=== PATIENT | male | born 1980 | race Asian ===

== ENCOUNTER 2017-06-30 13:03 | Inpatient (IN) | payer MEDICAID, OTHER ==
[~2017-06-30] VITALS: Ht 177.8 cm; Wt 62.3 kg
[~2017-06-30 13:03] MED LIST: DIVA500T35 PO; FLUO10TA3 PO; QUET50TA PO
[2017-06-30 13:49] LABS: BASOPHILS # (AUTO) 0.01 K/uL (0.00-0.20); BASOPHILS % (AUTO) 0.1 % (0.0-2.0); EOSINOPHILS # (AUTO) 0.11 K/uL (0.00-0.70); EOSINOPHILS % (AUTO) 1.48 % (1.0-6.0); HEMATOCRIT 39.4 % (41-53); HEMOGLOBIN 12.3 g/dL (13.5-17.5); LYMPHOCYTES # (AUTO) 1.5 K/uL (1.0-4.8); MEAN CORPUSCULAR HEMOGLOBIN 19.8 pg (26.0-34.0); MEAN CORPUSCULAR HGB CONC 31.2 G/dL (31.0-37.0); MEAN CORPUSCULAR VOLUME 64 fL (80-100); MONOCYTES # (AUTO) 0.5 K/uL (0.1-1.0); MONOCYTES % (AUTO) 6.2 % (2.0-9.0); NEUTROPHILS # (AUTO) 5.5 K/uL (1.8-7.7); NEUTROPHILS % (AUTO) 72.3 % (40.0-70.0); PLATELET COUNT (AUTO) 179 K/uL (150-450); RED BLOOD CELL COUNT(AUTO) 6.18 MIL/uL (4.50-5.90); RED CELL DISTRIBUTION WIDTH 16.1 % (11.5-14.5); WHITE BLOOD COUNT (AUTO) 7.6 K/uL (4.5-11.0)
[2017-06-30 13:57] LABS: ANION GAP 6 mmol/L (8-16); CALCIUM, TOTAL 8.9 mg/dL (8.8-10.5); CARBON DIOXIDE 31 mmol/L (22-29); CHLORIDE 102 mmol/L (98-107); CREATININE 0.95 mg/dL (0.60-1.30); GLOMERULAR FILTR. RATE CALC > 60 mL/min (>60); POTASSIUM 4.1 mmol/L (3.5-5.1); SODIUM SERUM 139 mmol/L (136-145); UREA NITROGEN, BLOOD 16 mg/dL (7-18)
[2017-06-30 14:10] LABS: ALANINE AMINOTRANSFERASE 28 U/L (12-78); ALBUMIN 3.6 g/dL (3.4-5.0); ASPARTATE AMINOTRANSFERASE 19 U/L (15-37); BILIRUBIN,TOTAL 0.4 mg/dL (0.1-1.0); TOTAL PROTEIN, SERUM 7.3 g/dL (6.4-8.2)
[2017-06-30 14:17] LABS: RBC MORPHOLOGY COMMENT ABNORMAL RBC MORPH
[2017-06-30 14:26] LABS: VALPROIC ACID < 3 mcg/mL (50-100)
[2017-06-30] MEDS ORDERED: ZOLPIDEM TARTRATE 10 MG TABLET PO PRN (15:15)
[2017-07-01 02:42] VITALS: BP 115/64
[2017-07-01] MEDS ORDERED: -PHARMACY VACCINE NOTE- MISC ONE ×2 (03:00)
[2017-07-01] MEDS ORDERED: INFLUENZA VIRUS VACCINE QVS 2017-18 (3YR+)/PF 60 MCG/0.5 ML SYRINGE IM ONE (03:00)
[2017-07-01 09:01] VITALS: BP 101/63
[2017-07-01] MEDS: QUEtiapine FUMARATE 100 MG TABLET PO SCH (20:31)
[2017-07-02 08:12] VITALS: BP 96/69
[2017-07-02] MEDS: QUEtiapine FUMARATE 100 MG TABLET PO SCH (20:55)
[2017-07-03 00:23] VITALS: BP 113/79
[2017-07-03 06:50] LABS: BASOPHILS % (AUTO) 0.4 % (0.0-2.0); EOSINOPHILS % (AUTO) 3.5 % (1.0-6.0); HEMATOCRIT 38.3 % (41-53); HEMOGLOBIN 12.3 g/dL (13.5-17.5); LYMPHOCYTES # (AUTO) 1.8 K/uL (1.0-4.8); LYMPHOCYTES % (AUTO) 33.8 % (22.0-44.0); MEAN CORPUSCULAR HEMOGLOBIN 20.4 pg (26.0-34.0); MEAN CORPUSCULAR VOLUME 64 fL (80-100); MONOCYTES # (AUTO) 0.5 K/uL (0.1-1.0); MONOCYTES % (AUTO) 8.4 % (2.0-9.0); NEUTROPHILS # (AUTO) 2.9 K/uL (1.8-7.7); NEUTROPHILS % (AUTO) 53.9 % (40.0-70.0); PLATELET COUNT (AUTO) 230 K/uL (150-450); RED BLOOD CELL COUNT(AUTO) 6.02 MIL/uL (4.50-5.90); RED CELL DISTRIBUTION WIDTH 15.5 % (11.5-14.5); WHITE BLOOD COUNT (AUTO) 5.4 K/uL (4.5-11.0)
[2017-07-03 07:15] LABS: ALANINE AMINOTRANSFERASE 27 U/L (12-78); ALBUMIN 3.2 g/dL (3.4-5.0); ANION GAP 3 mmol/L (8-16); ASPARTATE AMINOTRANSFERASE 16 U/L (15-37); BILIRUBIN,TOTAL 0.3 mg/dL (0.1-1.0); CALCIUM, TOTAL 8.4 mg/dL (8.8-10.5); CARBON DIOXIDE 30 mmol/L (22-29); CHLORIDE 104 mmol/L (98-107); CREATININE 0.81 mg/dL (0.60-1.30); GLOMERULAR FILTR. RATE CALC > 60 mL/min (>60); POTASSIUM 4.2 mmol/L (3.5-5.1); SODIUM SERUM 137 mmol/L (136-145); THYROID STIMULATING HORMONE 1.11 uIU/mL (0.36-3.74); TOTAL PROTEIN, SERUM 6.9 g/dL (6.4-8.2); UREA NITROGEN, BLOOD 17 mg/dL (7-18)
[2017-07-03 08:08] VITALS: BP 106/68
[2017-07-03 08:11] VITALS: BP 106/68
[2017-07-03] MEDS: LORazepam 2 MG TABLET PO PRN ×2 (08:38→17:57)
[2017-07-03] MEDS: HALOPERIDOL 5 MG TABLET PO PRN (17:57)
[2017-07-03 18:40] VITALS: BP 131/79
[2017-07-03] MEDS: QUEtiapine FUMARATE 100 MG TABLET PO SCH (20:11)
[2017-07-04 08:08] VITALS: BP 109/66
[2017-07-04 16:29] VITALS: BP 128/79
[2017-07-04] MEDS: HALOPERIDOL 5 MG TABLET PO PRN (17:48)
[2017-07-04] MEDS: LORazepam 2 MG TABLET PO PRN (17:49)
[2017-07-04] MEDS: QUEtiapine FUMARATE 100 MG TABLET PO SCH (21:48)
[2017-07-05 10:11] VITALS: BP 94/52
[2017-07-05] MEDS: CITALOPRAM HYDROBROMIDE 20 MG TABLET PO SCH (10:16)
[2017-07-05] MEDS: QUEtiapine FUMARATE 100 MG TABLET PO SCH (20:58)
[2017-07-06 08:32] VITALS: BP 93/57
[2017-07-06] MEDS: CITALOPRAM HYDROBROMIDE 20 MG TABLET PO SCH (09:35)
[2017-07-06] MEDS: QUEtiapine FUMARATE 100 MG TABLET PO SCH (20:29)
[2017-07-07 02:53] VITALS: BP 116/71
[2017-07-07] MEDS: LORazepam 2 MG TABLET PO PRN (05:40)
[2017-07-07 08:09] VITALS: BP 103/58
[2017-07-07] MEDS: CITALOPRAM HYDROBROMIDE 20 MG TABLET PO SCH (08:45)
[2017-07-07] MEDS ORDERED: CITA20TA9 PO (12:56)
[2017-07-07] MEDS ORDERED: QUET100T PO (12:57)
== END 2017-07-07 13:45 | disposition home or self-care (01) | DRG 753 ==
LOC: EMS 13:04 → 3EC 07-01 01:50
PROVIDERS: ADMIT Psychiatry & Neurology Child & Adolescent Psychiatry; ATTEND Psychiatry & Neurology Child & Adolescent Psychiatry
DX: F31.4 Bipolar disorder, current episode depressed, severe, without psychotic features (principal); R45.851 Suicidal ideations; D50.9 Iron deficiency anemia, unspecified; F17.210 Nicotine dependence, cigarettes, uncomplicated; F64.9 Gender identity disorder, unspecified; K59.00 Constipation, unspecified; Z59.0 Homelessness; Z79.899 Other long term (current) drug therapy; Z91.5 Personal history of self-harm
CPT/HCPCS: 84439; 84443; 99285; 99406; G0480

== ENCOUNTER 2017-08-02 05:43 | Inpatient (IN) | payer MEDICAID, OTHER ==
[~2017-08-02] VITALS: Ht 177.8 cm; Wt 61.2 kg
[~2017-08-02 05:43] MED LIST changes: +CITA20TA9 PO; -DIVA500T35 PO; -FLUO10TA3 PO; +QUET100T PO; -QUET50TA PO
[2017-08-02 07:00] LABS: BASOPHILS % (AUTO) 0.7 % (0.0-2.0); EOSINOPHILS % (AUTO) 2.4 % (1.0-6.0); HEMATOCRIT 37.9 % (41-53); LYMPHOCYTES % (AUTO) 36.8 % (22.0-44.0); MEAN CORPUSCULAR HEMOGLOBIN 20.1 pg (26.0-34.0); MEAN CORPUSCULAR HGB CONC 31.6 G/dL (31.0-37.0); MEAN CORPUSCULAR VOLUME 63 fL (80-100); MONOCYTES # (AUTO) 0.5 K/uL (0.1-1.0); MONOCYTES % (AUTO) 8.5 % (2.0-9.0); NEUTROPHILS # (AUTO) 2.8 K/uL (1.8-7.7); NEUTROPHILS % (AUTO) 51.6 % (40.0-70.0); PLATELET COUNT (AUTO) 181 K/uL (150-450); RED BLOOD CELL COUNT(AUTO) 5.98 MIL/uL (4.50-5.90); RED CELL DISTRIBUTION WIDTH 15.6 % (11.5-14.5)
[2017-08-02 07:23] LABS: ANION GAP 5 mmol/L (8-16); CALCIUM, TOTAL 8.5 mg/dL (8.8-10.5); CARBON DIOXIDE 33 mmol/L (22-29); CHLORIDE 102 mmol/L (98-107); CREATININE 0.86 mg/dL (0.60-1.30); GLOMERULAR FILTR. RATE CALC > 60 mL/min (>60); GLUCOSE,RANDOM 114 mg/dL (70-110); POTASSIUM 4.1 mmol/L (3.5-5.1); SODIUM SERUM 140 mmol/L (136-145); UREA NITROGEN, BLOOD 9 mg/dL (7-18)
[2017-08-02 07:28] LABS: ALANINE AMINOTRANSFERASE 23 U/L (12-78); ALBUMIN 3.5 g/dL (3.4-5.0); ALKALINE PHOSPHATASE 99 U/L (46-116); ASPARTATE AMINOTRANSFERASE 15 U/L (15-37); BILIRUBIN,TOTAL 0.3 mg/dL (0.1-1.0); TOTAL PROTEIN, SERUM 7.1 g/dL (6.4-8.2)
[2017-08-02] MEDS ORDERED: LORazepam 2 MG TABLET PO PRN (09:15)
[2017-08-02] MEDS ORDERED: ZOLPIDEM TARTRATE 10 MG TABLET PO PRN (09:15)
[2017-08-02] MEDS ORDERED: HALOPERIDOL 5 MG TABLET PO PRN (09:15)
[2017-08-02 11:22] VITALS: BP 108/65
[2017-08-02 20:35] VITALS: BP 105/66
[2017-08-02] MEDS ORDERED: QUEtiapine FUMARATE 100 MG TABLET PO SCH (21:00)
[2017-08-03 04:15] VITALS: BP 112/70
[2017-08-03 09:00] VITALS: BP 100/41
[2017-08-03] MEDS ORDERED: CITALOPRAM HYDROBROMIDE 20 MG TABLET PO SCH (09:00)
[2017-08-03 16:30] VITALS: BP 125/79
[2017-08-03] MEDS: MIRTAZAPINE 15 MG TABLET PO SCH (20:25)
[2017-08-04] MEDS: ARIPiprazole 10 MG TABLET PO SCH (08:38)
[2017-08-04 09:00] VITALS: BP 117/88
[2017-08-04] MEDS: MIRTAZAPINE 15 MG TABLET PO SCH (21:27)
[2017-08-04 22:39] VITALS: BP 105/70
[2017-08-05 08:00] VITALS: BP 109/70
[2017-08-05] MEDS: ARIPiprazole 10 MG TABLET PO SCH (11:00)
[2017-08-05] MEDS: MIRTAZAPINE 15 MG TABLET PO SCH (21:08)
[2017-08-05 21:55] VITALS: BP 114/74
[2017-08-06] MEDS: ARIPiprazole 10 MG TABLET PO SCH (09:41)
[2017-08-06 10:23] VITALS: BP 113/82
[2017-08-06 17:10] VITALS: BP 109/65
[2017-08-06] MEDS: MIRTAZAPINE 15 MG TABLET PO SCH (20:57)
[2017-08-07 08:57] VITALS: BP 102/65
[2017-08-07] MEDS: ARIPiprazole 10 MG TABLET PO SCH (09:44)
[2017-08-07 20:01] VITALS: BP 105/70
[2017-08-07] MEDS: MIRTAZAPINE 15 MG TABLET PO SCH (21:15)
[2017-08-08 08:00] VITALS: BP_SYST 96
[2017-08-08] MEDS: ARIPiprazole 10 MG TABLET PO SCH (10:11)
[2017-08-08 18:00] VITALS: BP 110/69
[2017-08-08] MEDS: MIRTAZAPINE 15 MG TABLET PO SCH (20:42)
[2017-08-09 08:00] VITALS: BP 111/74
[2017-08-09] MEDS ORDERED: ARIP10TA8 PO (09:22)
[2017-08-09] MEDS ORDERED: MIRT15 PO (09:22)
[2017-08-09] MEDS: ARIPiprazole 10 MG TABLET PO SCH (09:54)
== END 2017-08-09 14:06 | disposition home or self-care (01) | DRG 751 ==
LOC: EMS 05:44 → 3EI 10:14
PROVIDERS: ADMIT Psychiatry & Neurology Child & Adolescent Psychiatry; ATTEND Psychiatry & Neurology Child & Adolescent Psychiatry
DX: F33.2 Major depressive disorder, recurrent severe without psychotic features (principal); R45.851 Suicidal ideations; D64.9 Anemia, unspecified; F64.9 Gender identity disorder, unspecified; F15.90 Other stimulant use, unspecified, uncomplicated; Z87.891 Personal history of nicotine dependence; Z68.1 Body mass index [BMI] 19.9 or less, adult
CPT/HCPCS: 87081; 99285; G0480

== ENCOUNTER 2017-11-20 06:09 | Emergency (ER) | payer MEDICAID, OTHER ==
[~2017-11-20] VITALS: Ht 177.8 cm; Wt 61.8 kg
[~2017-11-20 06:09] MED LIST changes: +ARIP10TA8 PO; -CITA20TA9 PO; +MIRT15 PO; -QUET100T PO
[2017-11-20] MEDS ORDERED: SODIUM CHLORIDE 0.9% 1,000 ML IV ONE (06:31)
[2017-11-20] MEDS ORDERED: ONDANSETRON HCL 4 MG/2 ML VIAL IVP ONE (06:45)
[2017-11-20 06:58] LABS: BASOPHILS % (AUTO) 1.2 % (0.0-2.0); EOSINOPHILS % (AUTO) 2.5 % (1.0-6.0); HEMATOCRIT 38.8 % (41-53); HEMOGLOBIN 12.2 g/dL (13.5-17.5); LYMPHOCYTES % (AUTO) 40.8 % (22.0-44.0); MEAN CORPUSCULAR HEMOGLOBIN 19.3 pg (26.0-34.0); MEAN CORPUSCULAR HGB CONC 31.4 G/dL (31.0-37.0); MEAN CORPUSCULAR VOLUME 62 fL (80-100); MONOCYTES # (AUTO) 0.5 K/uL (0.1-1.0); MONOCYTES % (AUTO) 9.7 % (2.0-9.0); NEUTROPHILS # (AUTO) 2.3 K/uL (1.8-7.7); NEUTROPHILS % (AUTO) 45.8 % (40.0-70.0); PLATELET COUNT (AUTO) 175 K/uL (150-450); RED BLOOD CELL COUNT(AUTO) 6.31 MIL/uL (4.50-5.90); RED CELL DISTRIBUTION WIDTH 16.2 % (11.5-14.5)
[2017-11-20 07:06] LABS: ANION GAP 2 mmol/L (8-16); CALCIUM, TOTAL 8.6 mg/dL (8.8-10.5); CARBON DIOXIDE 32 mmol/L (22-29); CHLORIDE 106 mmol/L (98-107); CREATININE 0.96 mg/dL (0.60-1.30); GLOMERULAR FILTR. RATE CALC > 60 mL/min (>60); GLUCOSE,RANDOM 95 mg/dL (70-110); POTASSIUM 3.6 mmol/L (3.5-5.1); SODIUM SERUM 140 mmol/L (136-145); UREA NITROGEN, BLOOD 11 mg/dL (7-18)
[2017-11-20 07:12] LABS: ALANINE AMINOTRANSFERASE 26 U/L (12-78); ALBUMIN 3.7 g/dL (3.4-5.0); ALKALINE PHOSPHATASE 93 U/L (46-116); ASPARTATE AMINOTRANSFERASE 11 U/L (15-37); BILIRUBIN,TOTAL 0.3 mg/dL (0.1-1.0); LIPASE 246 U/L (73-393); TOTAL PROTEIN, SERUM 7.5 g/dL (6.4-8.2)
[2017-11-20 07:41] LABS: APPEARANCE,URINE CLEAR (CLEAR); BILIRUBIN,URINE NEGATIVE (NEGATIVE); GLUCOSE, URINE (UA) NEGATIVE (NEGATIVE); KETONES,URINE NEGATIVE (NEGATIVE); LEUKOCYTE ESTERASE ,URINE NEGATIVE (NEGATIVE); NITRATE,URINE NEGATIVE (NEGATIVE); OCCULT BLOOD,URINE NEGATIVE (NEGATIVE); PROTEIN,URINE NEGATIVE (NEGATIVE); UROBILINOGEN,URINE 0.2 mg/dL (<=1.0)
[2017-11-20 07:46] VITALS: BP 112/81
[2017-11-20 08:23] LABS: AMPHET/METH SCREEN,URINE NEGATIVE (NEGATIVE); BARBITURATE SCREEN, URINE NEGATIVE (NEGATIVE); BENZODIAZEPINES SCREEN,URINE NEGATIVE (NEGATIVE); CANNABINOID SCREEN,URINE NEGATIVE (NEGATIVE); COCAINE SCREEN,URINE NEGATIVE (NEGATIVE); METHADONE SCREEN, URINE NEGATIVE (NEGATIVE); OPIATE SCREEN,URINE NEGATIVE (NEGATIVE)
[2017-11-20 08:24] LABS: PHENCYCLIDINE SCREEN,URINE NEGATIVE (NEGATIVE)
== END 2017-11-20 09:01 | disposition home or self-care (01) ==
LOC: EMS 06:10
DX: R11.2 Nausea with vomiting, unspecified (principal); R10.9 Unspecified abdominal pain; F31.9 Bipolar disorder, unspecified; F17.210 Nicotine dependence, cigarettes, uncomplicated
CPT/HCPCS: 36415; 80053; 80307; 81003; 83690; 85025; 96361; 96374; 99284; 99406; J2405; J7030

== ENCOUNTER 2018-01-26 03:58 | Inpatient (IN) | payer MEDICAID, OTHER ==
[~2018-01-26] VITALS: Ht 177.8 cm; Wt 57.7 kg
[2018-01-26] MEDS ORDERED: PRED5 PO (04:13)
[2018-01-26 05:20] LABS: ANION GAP 2 mmol/L (8-16); CALCIUM, TOTAL 8.4 mg/dL (8.8-10.5); CARBON DIOXIDE 30 mmol/L (22-29); CHLORIDE 104 mmol/L (98-107); GLOMERULAR FILTR. RATE CALC > 60 mL/min (>60); GLUCOSE,RANDOM 166 mg/dL (70-110); POTASSIUM 4.4 mmol/L (3.5-5.1); SODIUM SERUM 136 mmol/L (136-145); UREA NITROGEN, BLOOD 8 mg/dL (7-18)
[2018-01-26 05:26] LABS: ALANINE AMINOTRANSFERASE 21 U/L (12-78); ALBUMIN 3.6 g/dL (3.4-5.0); ALKALINE PHOSPHATASE 66 U/L (46-116); ASPARTATE AMINOTRANSFERASE 14 U/L (15-37); BILIRUBIN,TOTAL 0.6 mg/dL (0.1-1.0); TOTAL PROTEIN, SERUM 6.7 g/dL (6.4-8.2)
[2018-01-26 05:28] LABS: BASOPHILS % (AUTO) 0.9 % (0.0-2.0); EOSINOPHILS % (AUTO) 2.6 % (1.0-6.0); HEMATOCRIT 35.3 % (41-53); HEMOGLOBIN 11.2 g/dL (13.5-17.5); LYMPHOCYTES # (AUTO) 1.7 K/uL (1.0-4.8); LYMPHOCYTES % (AUTO) 36.1 % (22.0-44.0); MEAN CORPUSCULAR HEMOGLOBIN 19.7 pg (26.0-34.0); MEAN CORPUSCULAR HGB CONC 31.8 G/dL (31.0-37.0); MEAN CORPUSCULAR VOLUME 62 fL (80-100); MONOCYTES # (AUTO) 0.4 K/uL (0.1-1.0); NEUTROPHILS # (AUTO) 2.4 K/uL (1.8-7.7); NEUTROPHILS % (AUTO) 52.4 % (40.0-70.0); PLATELET COUNT (AUTO) 188 K/uL (150-450); RED CELL DISTRIBUTION WIDTH 15.9 % (11.5-14.5)
[2018-01-26] MEDS ORDERED: LORazepam 2 MG TABLET PO PRN (06:15)
[2018-01-26] MEDS ORDERED: ZOLPIDEM TARTRATE 10 MG TABLET PO PRN (06:15)
[2018-01-26] MEDS ORDERED: HALOPERIDOL 5 MG TABLET PO PRN (06:15)
[2018-01-26 08:41] VITALS: BP 95/51
[2018-01-26 08:45] VITALS: BP 110/65
[2018-01-26] MEDS: ARIPiprazole 10 MG TABLET PO SCH (09:23)
[2018-01-26] MEDS: CITALOPRAM HYDROBROMIDE 20 MG TABLET PO SCH (09:23)
[2018-01-26] MEDS ORDERED: ACETAMINOPHEN 325 MG TABLET PO PRN (11:00)
[2018-01-26] MEDS ORDERED: PETROLATUM,WHITE 71 GM JELLY TP PRN (11:00)
[2018-01-26] MEDS ORDERED: DOCUSATE SODIUM 100 MG CAPSULE PO PRN (11:00)
[2018-01-26] MEDS ORDERED: ONDANSETRON HCL 4 MG TABLET PO PRN (11:00)
[2018-01-26] MEDS ORDERED: ALBUTEROL SULFATE HFA 90 MCG/PUFF 8 GM INHALER IH PRN (11:00)
[2018-01-26] MEDS ORDERED: MAG HYDROX/AL HYDROX/SIMETH ES 30 ML SUSPENSION UDCUP PO PRN (11:00)
[2018-01-26] MEDS ORDERED: IBUPROFEN 400 MG TABLET PO PRN (11:00)
[2018-01-26] MEDS ORDERED: MAGNESIUM HYDROXIDE SUSPENSION 30 ML UDCUP PO PRN (11:00)
[2018-01-26] MEDS: MIRTAZAPINE 15 MG TABLET PO SCH (21:16)
[2018-01-27] MEDS: NICOTINE 14 MG/24 HOUR PATCH TD SCH (09:00)
[2018-01-27 09:16] VITALS: BP 116/66
[2018-01-27] MEDS: PredniSONE 5 MG TABLET PO SCH (09:34)
[2018-01-27] MEDS: ARIPiprazole 10 MG TABLET PO SCH (09:34)
[2018-01-27] MEDS: CITALOPRAM HYDROBROMIDE 20 MG TABLET PO SCH (09:34)
[2018-01-27] MEDS: MIRTAZAPINE 15 MG TABLET PO SCH (20:21)
[2018-01-28] MEDS: NICOTINE 14 MG/24 HOUR PATCH TD SCH (09:00)
[2018-01-28] MEDS: CITALOPRAM HYDROBROMIDE 20 MG TABLET PO SCH (09:42)
[2018-01-28] MEDS: PredniSONE 5 MG TABLET PO SCH (09:42)
[2018-01-28] MEDS: ARIPiprazole 10 MG TABLET PO SCH (09:42)
[2018-01-28 12:56] VITALS: BP 105/62
[2018-01-28] MEDS ORDERED: NICOTINE 14 MG/24 HOUR PATCH TD PRN (14:45)
[2018-01-28 19:52] VITALS: BP 113/71
[2018-01-28] MEDS: MIRTAZAPINE 15 MG TABLET PO SCH (20:36)
[2018-01-29 10:24] VITALS: BP 102/67
[2018-01-29] MEDS: CITALOPRAM HYDROBROMIDE 20 MG TABLET PO SCH (10:40)
[2018-01-29] MEDS: PredniSONE 5 MG TABLET PO SCH (10:40)
[2018-01-29] MEDS: ARIPiprazole 10 MG TABLET PO SCH (10:40)
[2018-01-29] MEDS: MIRTAZAPINE 15 MG TABLET PO SCH (20:28)
[2018-01-30 03:16] VITALS: BP 110/77
[2018-01-30 09:52] VITALS: BP 112/72
[2018-01-30] MEDS: CITALOPRAM HYDROBROMIDE 20 MG TABLET PO SCH (12:58)
[2018-01-30] MEDS: ARIPiprazole 10 MG TABLET PO SCH (12:58)
[2018-01-30] MEDS: PredniSONE 5 MG TABLET PO SCH (12:58)
[2018-01-30] MEDS: MIRTAZAPINE 15 MG TABLET PO SCH (20:56)
[2018-01-30 21:03] VITALS: BP 98/63
[2018-01-31 08:05] VITALS: BP 110/66
[2018-01-31] MEDS: CITALOPRAM HYDROBROMIDE 20 MG TABLET PO SCH (11:15)
[2018-01-31] MEDS: ARIPiprazole 10 MG TABLET PO SCH (11:15)
[2018-01-31] MEDS: PredniSONE 5 MG TABLET PO SCH (11:16)
[2018-01-31 18:45] VITALS: BP 106/64
[2018-01-31] MEDS: MIRTAZAPINE 15 MG TABLET PO SCH (20:36)
[2018-02-01 04:03] VITALS: BP 100/62
[2018-02-01 08:05] VITALS: BP 119/79
[2018-02-01] MEDS: ARIPiprazole 10 MG TABLET PO SCH (08:50)
[2018-02-01] MEDS: CITALOPRAM HYDROBROMIDE 20 MG TABLET PO SCH (08:50)
[2018-02-01] MEDS: PredniSONE 5 MG TABLET PO SCH (08:50)
[2018-02-01 19:08] VITALS: BP 94/58
[2018-02-01] MEDS: MIRTAZAPINE 15 MG TABLET PO SCH (20:24)
[2018-02-02 04:17] VITALS: BP 103/61
[2018-02-02 07:08] LABS: % IRON SATURATION 37.6 % (30-44)
[2018-02-02 08:52] VITALS: BP 98/63
[2018-02-02] MEDS: ARIPiprazole 10 MG TABLET PO SCH (09:00)
[2018-02-02] MEDS: CITALOPRAM HYDROBROMIDE 20 MG TABLET PO SCH (09:00)
[2018-02-02] MEDS: PredniSONE 5 MG TABLET PO SCH (09:00)
[2018-02-02] MEDS ORDERED: ARIP10TA8 PO (09:04)
[2018-02-02] MEDS ORDERED: CITA-106 PO (09:04)
[2018-02-02] MEDS ORDERED: MIRT15 PO (09:05)
== END 2018-02-02 12:05 | disposition home or self-care (01) | DRG 753 ==
LOC: EMS 03:59 → AHU 06:19 → 3EI 20:03
PROVIDERS: ADMIT Psychiatry & Neurology Psychiatry; ATTEND Psychiatry & Neurology Psychiatry
DX: F31.2 Bipolar disorder, current episode manic severe with psychotic features (principal); R45.851 Suicidal ideations; D50.9 Iron deficiency anemia, unspecified; R63.0 Anorexia; F17.210 Nicotine dependence, cigarettes, uncomplicated; F41.9 Anxiety disorder, unspecified; R73.9 Hyperglycemia, unspecified; F64.9 Gender identity disorder, unspecified; K59.09 Other constipation; Z79.899 Other long term (current) drug therapy; Z68.1 Body mass index [BMI] 19.9 or less, adult; Z71.6 Tobacco abuse counseling
CPT/HCPCS: 82728; 83540; 83550; 99285; G0480

== ENCOUNTER 2018-05-15 05:50 | Inpatient (IN) | payer MEDICAID, OTHER ==
[~2018-05-15] VITALS: Ht 177.8 cm; Wt 60.6 kg
[~2018-05-15 05:50] MED LIST changes: +CITA-106 PO; +PRED5 PO
[2018-05-15 08:04] LABS: EOSINOPHILS % (AUTO) 1.6 % (1.0-6.0); HEMATOCRIT 35.1 % (41-53); HEMOGLOBIN 11.1 g/dL (13.5-17.5); LYMPHOCYTES # (AUTO) 1.4 K/uL (1.0-4.8); MEAN CORPUSCULAR HEMOGLOBIN 19.7 pg (26.0-34.0); MEAN CORPUSCULAR HGB CONC 31.8 G/dL (31.0-37.0); MEAN CORPUSCULAR VOLUME 62 fL (80-100); MONOCYTES # (AUTO) 0.5 K/uL (0.1-1.0); MONOCYTES % (AUTO) 9.6 % (2.0-9.0); NEUTROPHILS # (AUTO) 3.2 K/uL (1.8-7.7); NEUTROPHILS % (AUTO) 60.8 % (40.0-70.0); PLATELET COUNT (AUTO) 220 K/uL (150-450); RED BLOOD CELL COUNT(AUTO) 5.67 MIL/uL (4.50-5.90); RED CELL DISTRIBUTION WIDTH 15.9 % (11.5-14.5)
[2018-05-15 08:15] LABS: ANION GAP 3 mmol/L (8-16); CALCIUM, TOTAL 8.7 mg/dL (8.8-10.5); CARBON DIOXIDE 32 mmol/L (22-29); CHLORIDE 103 mmol/L (98-107); CREATININE 0.84 mg/dL (0.60-1.30); GLOMERULAR FILTR. RATE CALC > 60 mL/min (>60); GLUCOSE,RANDOM 88 mg/dL (70-110); POTASSIUM 3.8 mmol/L (3.5-5.1); SODIUM SERUM 138 mmol/L (136-145); UREA NITROGEN, BLOOD 14 mg/dL (7-18)
[2018-05-15 08:21] LABS: ALANINE AMINOTRANSFERASE 25 U/L (12-78); ALBUMIN 3.7 g/dL (3.4-5.0); ALKALINE PHOSPHATASE 70 U/L (46-116); ASPARTATE AMINOTRANSFERASE 18 U/L (15-37); BILIRUBIN,TOTAL 0.7 mg/dL (0.1-1.0); TOTAL PROTEIN, SERUM 7.4 g/dL (6.4-8.2)
[2018-05-15] MEDS ORDERED: QUEtiapine FUMARATE 100 MG TABLET PO PRN (08:30)
[2018-05-15] MEDS ORDERED: LORazepam 2 MG TABLET PO PRN (08:30)
[2018-05-15] MEDS ORDERED: ZOLPIDEM TARTRATE 10 MG TABLET PO PRN (08:30)
[2018-05-15 08:33] LABS: PLATELET MORPHOLOGY COMMENT GIANT PLTS PRESENT
[2018-05-15] MEDS ORDERED: MAG HYDROX/AL HYDROX/SIMETH ES 30 ML SUSPENSION UDCUP PO PRN (14:45)
[2018-05-15] MEDS ORDERED: HydrOXYzine PAMOATE 50 MG CAPSULE PO PRN (14:45)
[2018-05-15] MEDS ORDERED: MAGNESIUM HYDROXIDE SUSPENSION 30 ML UDCUP PO PRN (14:45)
[2018-05-15] MEDS ORDERED: LOPERAMIDE HCL 2 MG CAPSULE PO PRN (14:45)
[2018-05-15] MEDS ORDERED: PROMETHAZINE HCL 25 MG TABLET PO PRN (14:45)
[2018-05-15] MEDS ORDERED: TUBERCULIN, PURIFIED PROTEIN DERIVATIVE 5 TU/0.1 ML SYG ID ONE (14:45)
[2018-05-15] MEDS ORDERED: GuaiFENesin/D-METHORPHAN [SUGAR-FREE] 200-20MG/10 ML SYRUP UDCUP PO PRN (14:45)
[2018-05-15] MEDS ORDERED: ACETAMINOPHEN 325 MG TABLET PO PRN (14:45)
[2018-05-15] MEDS ORDERED: CYANOCOBALAMIN 1,000 MCG/ML VIAL IM ONE (14:45)
[2018-05-15] MEDS: QUEtiapine FUMARATE 25 MG TABLET PO SCH (17:00)
[2018-05-15 19:33] VITALS: BP 112/64
[2018-05-15 19:50] VITALS: BP 112/64
[2018-05-15 19:54] VITALS: BP 112/64
[2018-05-15] MEDS: THIAMINE HCL 100 MG TABLET PO SCH (20:30)
[2018-05-15] MEDS: DIVALPROEX SODIUM 500 MG ER TABLET PO SCH (20:33)
[2018-05-15] MEDS: QUEtiapine FUMARATE 200 MG TABLET PO SCH (20:33)
[2018-05-16] MEDS: THIAMINE HCL 100 MG TABLET PO SCH ×2 (09:00→18:04)
[2018-05-16] MEDS: FLUoxetine HCL 10 MG CAPSULE PO SCH (09:00)
[2018-05-16] MEDS: QUEtiapine FUMARATE 25 MG TABLET PO SCH ×4 (09:00→21:00)
[2018-05-16] MEDS: FOLIC ACID 1 MG TABLET PO SCH (09:50)
[2018-05-16] MEDS: MULTIVITAMINS WITH MINERALS, THERAPEUTIC TABLET PO SCH (09:52)
[2018-05-16] MEDS: NICOTINE 21 MG/24 HOUR PATCH TD SCH (09:55)
[2018-05-16 10:52] VITALS: BP 102/65
[2018-05-16] MEDS ORDERED: DiphenhydrAMINE HCL 50 MG/ML VIAL IM ONE (12:45)
[2018-05-16] MEDS ORDERED: HALOPERIDOL LACTATE 5 MG/ML VIAL IM ONE (12:45)
[2018-05-16] MEDS ORDERED: LORazepam 2 MG/ML VIAL IM ONE (12:45)
[2018-05-16 19:11] VITALS: BP 99/67
[2018-05-16] MEDS: DIVALPROEX SODIUM 500 MG ER TABLET PO SCH (21:00)
[2018-05-16] MEDS: QUEtiapine FUMARATE 200 MG TABLET PO SCH (21:00)
[2018-05-17] MEDS: QUEtiapine FUMARATE 25 MG TABLET PO SCH ×5 (09:00→21:00)
[2018-05-17] MEDS: FLUoxetine HCL 10 MG CAPSULE PO SCH (09:00)
[2018-05-17] MEDS: MULTIVITAMINS WITH MINERALS, THERAPEUTIC TABLET PO SCH (09:00)
[2018-05-17] MEDS: THIAMINE HCL 100 MG TABLET PO SCH ×2 (09:00→16:49)
[2018-05-17] MEDS: NICOTINE 21 MG/24 HOUR PATCH TD SCH (09:00)
[2018-05-17] MEDS: FOLIC ACID 1 MG TABLET PO SCH (09:00)
[2018-05-17] MEDS: DIVALPROEX SODIUM 500 MG ER TABLET PO SCH (21:00)
[2018-05-17] MEDS: QUEtiapine FUMARATE 200 MG TABLET PO SCH (21:00)
[2018-05-17 22:03] VITALS: BP 107/68
[2018-05-18] MEDS: MULTIVITAMINS WITH MINERALS, THERAPEUTIC TABLET PO SCH (09:00)
[2018-05-18] MEDS: FOLIC ACID 1 MG TABLET PO SCH (09:00)
[2018-05-18] MEDS: QUEtiapine FUMARATE 25 MG TABLET PO SCH ×2 (09:00→13:00)
[2018-05-18] MEDS: FLUoxetine HCL 10 MG CAPSULE PO SCH (09:00)
[2018-05-18] MEDS: NICOTINE 21 MG/24 HOUR PATCH TD SCH (09:00)
[2018-05-18] MEDS: THIAMINE HCL 100 MG TABLET PO SCH ×2 (09:00→17:00)
[2018-05-18 15:06] LABS: BASOPHILS % (AUTO) 0.1 % (0.0-2.0); EOSINOPHILS % (AUTO) 0 % (1.0-6.0); HEMATOCRIT 39.5 % (41-53); HEMOGLOBIN 12.4 g/dL (13.5-17.5); LYMPHOCYTES # (AUTO) 0.9 K/uL (1.0-4.8); LYMPHOCYTES % (AUTO) 7.4 % (22.0-44.0); MEAN CORPUSCULAR HEMOGLOBIN 19.6 pg (26.0-34.0); MEAN CORPUSCULAR HGB CONC 31.5 G/dL (31.0-37.0); MEAN CORPUSCULAR VOLUME 62 fL (80-100); MONOCYTES # (AUTO) 0.4 K/uL (0.1-1.0); MONOCYTES % (AUTO) 3.4 % (2.0-9.0); NEUTROPHILS # (AUTO) 10.8 K/uL (1.8-7.7); PLATELET COUNT (AUTO) 269 K/uL (150-450); RED BLOOD CELL COUNT(AUTO) 6.34 MIL/uL (4.50-5.90); RED CELL DISTRIBUTION WIDTH 15.7 % (11.5-14.5)
[2018-05-18 15:14] LABS: NEUTROPHILS % (AUTO) 89.1 % (40.0-70.0)
[2018-05-18 15:31] LABS: CALCIUM, TOTAL 9.7 mg/dL (8.8-10.5); CREATININE 1.43 mg/dL (0.60-1.30); POTASSIUM 4.7 mmol/L (3.5-5.1)
[2018-05-18 15:57] LABS: ALBUMIN 3.9 g/dL (3.4-5.0); BILIRUBIN,TOTAL 0.5 mg/dL (0.1-1.0); TOTAL PROTEIN, SERUM 7.9 g/dL (6.4-8.2)
== END 2018-05-18 20:30 | disposition short-term general hospital (02) | DRG 753 ==
LOC: EMS 05:50 → 3EI 15:41
PROVIDERS: ADMIT Psychiatry & Neurology Psychiatry; ATTEND Psychiatry & Neurology Psychiatry
DX: F31.9 Bipolar disorder, unspecified (principal); Z91.19 Patient's noncompliance with other medical treatment and regimen; D64.9 Anemia, unspecified; F17.210 Nicotine dependence, cigarettes, uncomplicated; K59.00 Constipation, unspecified; F15.10 Other stimulant abuse, uncomplicated; Z59.0 Homelessness
CPT/HCPCS: 99285; G0480; J1200; J1630; J2060

== ENCOUNTER 2018-05-18 20:10 | Inpatient (IN) | payer MEDICAID, OTHER ==
[~2018-05-18] VITALS: Ht 177.8 cm; Wt 60.9 kg
[2018-05-18 20:58] VITALS: BP 96/52
[2018-05-18] MEDS ORDERED: ONDANSETRON HCL 4 MG/2 ML VIAL IVP PRN (21:15)
[2018-05-18] MEDS ORDERED: BISACODYL 10 MG RECTAL RECTAL SUPPOSITORY PR PRN (21:15)
[2018-05-18] MEDS ORDERED: ACETAMINOPHEN 325 MG TABLET PO PRN (21:15)
[2018-05-18] MEDS ORDERED: MAGNESIUM HYDROXIDE SUSPENSION 30 ML UDCUP PO PRN (21:15)
[2018-05-18] MEDS ORDERED: ZOLPIDEM TARTRATE 5 MG TABLET PO PRN (21:15)
[2018-05-18] MEDS ORDERED: -PHARMACY VACCINE NOTE- MISC ONE (22:00)
[2018-05-18] MEDS: DEXTROSE 5%-0.45% SODIUM CHL 1,000 ML IV SCH (22:41)
[2018-05-19] VITALS (8 sets, daily range): BP systolic 97–159; BP diastolic 61–70
[2018-05-19] MEDS: DEXTROSE 5%-0.45% SODIUM CHL 1,000 ML IV SCH (08:16)
[2018-05-19] MEDS: PANTOPRAZOLE SODIUM 40 MG/VIAL IVP SCH (08:16)
[2018-05-19 08:33] LABS: BASOPHILS % (AUTO) 0.5 % (0.0-2.0); EOSINOPHILS % (AUTO) 0.7 % (1.0-6.0); HEMATOCRIT 33.9 % (41-53); LYMPHOCYTES # (AUTO) 1.9 K/uL (1.0-4.8); LYMPHOCYTES % (AUTO) 20.5 % (22.0-44.0); MEAN CORPUSCULAR HEMOGLOBIN 20.4 pg (26.0-34.0); MEAN CORPUSCULAR HGB CONC 32.5 G/dL (31.0-37.0); MEAN CORPUSCULAR VOLUME 63 fL (80-100); MONOCYTES # (AUTO) 0.9 K/uL (0.1-1.0); MONOCYTES % (AUTO) 9.5 % (2.0-9.0); NEUTROPHILS # (AUTO) 6.2 K/uL (1.8-7.7); NEUTROPHILS % (AUTO) 68.8 % (40.0-70.0); PLATELET COUNT (AUTO) 234 K/uL (150-450); RED BLOOD CELL COUNT(AUTO) 5.41 MIL/uL (4.50-5.90); RED CELL DISTRIBUTION WIDTH 15.9 % (11.5-14.5)
[2018-05-19 08:50] LABS: HEMOGLOBIN A1C 5.3 % (4.5-6.2)
[2018-05-19 09:01] LABS: ANION GAP 3 mmol/L (8-16); CALCIUM, TOTAL 8.1 mg/dL (8.8-10.5); CARBON DIOXIDE 31 mmol/L (22-29); CHLORIDE 101 mmol/L (98-107); CHOL/HDL RATIO 3.1 (4.2-7.3); CHOLESTEROL 122 mg/dL (131-200); CREATININE 1.02 mg/dL (0.60-1.30); GLOMERULAR FILTR. RATE CALC > 60 mL/min (>60); GLUCOSE,RANDOM 110 mg/dL (70-110); HDL CHOLESTEROL 39 mg/dL (40-60); LDL CHOL (CALC.) 70 mg/dL (0-130); POTASSIUM 3.6 mmol/L (3.5-5.1); SODIUM SERUM 135 mmol/L (136-145); THYROID STIMULATING HORMONE 0.51 uIU/mL (0.36-3.74); TRIGLYCERIDES 67 mg/dL (15-150); UREA NITROGEN, BLOOD 15 mg/dL (7-18)
[2018-05-19 09:07] LABS: CREATINE KINASE, TOTAL ONLY 1409 U/L (39-308)
[2018-05-19] MEDS: SODIUM CHLORIDE 0.9% 1,000 ML IV SCH (10:37)
[2018-05-19 14:15] LABS: AMPHET/METH SCREEN,URINE NEGATIVE (NEGATIVE); BARBITURATE SCREEN, URINE NEGATIVE (NEGATIVE); BENZODIAZEPINES SCREEN,URINE NEGATIVE (NEGATIVE); CANNABINOID SCREEN,URINE NEGATIVE (NEGATIVE); COCAINE SCREEN,URINE NEGATIVE (NEGATIVE); METHADONE SCREEN, URINE NEGATIVE (NEGATIVE); OPIATE SCREEN,URINE NEGATIVE (NEGATIVE)
[2018-05-19 14:16] LABS: PHENCYCLIDINE SCREEN,URINE NEGATIVE (NEGATIVE)
[2018-05-19 14:19] LABS: APPEARANCE,URINE CLEAR (CLEAR); BILIRUBIN,URINE NEGATIVE (NEGATIVE); GLUCOSE, URINE (UA) NEGATIVE (NEGATIVE); KETONES,URINE NEGATIVE (NEGATIVE); LEUKOCYTE ESTERASE ,URINE NEGATIVE (NEGATIVE); NITRATE,URINE NEGATIVE (NEGATIVE); OCCULT BLOOD,URINE NEGATIVE (NEGATIVE); PH,URINE 6.5 (5.0-8.0); PROTEIN,URINE NEGATIVE (NEGATIVE); UROBILINOGEN,URINE 0.2 mg/dL (<=1.0)
[2018-05-19] MEDS ORDERED: LORazepam 2 MG TABLET PO PRN (17:30)
[2018-05-19] MEDS ORDERED: QUEtiapine FUMARATE 100 MG TABLET PO PRN (17:30)
[2018-05-19] MEDS: QUEtiapine FUMARATE 200 MG TABLET PO SCH (20:42)
[2018-05-19] MEDS: DIVALPROEX SODIUM 500 MG ER TABLET PO SCH (20:42)
[2018-05-20] MEDS: SODIUM CHLORIDE 0.9% 1,000 ML IV SCH ×2 (02:39→20:34)
[2018-05-20 03:22] VITALS: BP 100/72
[2018-05-20 06:12] LABS: BASOPHILS % (AUTO) 1.1 % (0.0-2.0); EOSINOPHILS % (AUTO) 1.2 % (1.0-6.0); HEMATOCRIT 33.4 % (41-53); HEMOGLOBIN 10.8 g/dL (13.5-17.5); LYMPHOCYTES # (AUTO) 2.1 K/uL (1.0-4.8); LYMPHOCYTES % (AUTO) 38.5 % (22.0-44.0); MEAN CORPUSCULAR HEMOGLOBIN 20.3 pg (26.0-34.0); MEAN CORPUSCULAR HGB CONC 32.3 G/dL (31.0-37.0); MEAN CORPUSCULAR VOLUME 63 fL (80-100); MONOCYTES # (AUTO) 0.5 K/uL (0.1-1.0); MONOCYTES % (AUTO) 10.2 % (2.0-9.0); NEUTROPHILS # (AUTO) 2.6 K/uL (1.8-7.7); PLATELET COUNT (AUTO) 206 K/uL (150-450); RED BLOOD CELL COUNT(AUTO) 5.31 MIL/uL (4.50-5.90); RED CELL DISTRIBUTION WIDTH 16.1 % (11.5-14.5)
[2018-05-20 06:22] LABS: % IRON SATURATION 50.2 % (30-44)
[2018-05-20 06:59] LABS: ANION GAP 2 mmol/L (8-16); CARBON DIOXIDE 32 mmol/L (22-29); CHLORIDE 105 mmol/L (98-107); CREATINE KINASE, TOTAL ONLY 715 U/L (39-308); CREATININE 0.92 mg/dL (0.60-1.30); GLOMERULAR FILTR. RATE CALC > 60 mL/min (>60); GLUCOSE,RANDOM 94 mg/dL (70-110); PHOSPHORUS 2.6 mg/dL (2.5-4.9); POTASSIUM 4.5 mmol/L (3.5-5.1); SODIUM SERUM 139 mmol/L (136-145); UREA NITROGEN, BLOOD 12 mg/dL (7-18)
[2018-05-20 07:40] VITALS: BP 105/65
[2018-05-20] MEDS: PANTOPRAZOLE SODIUM 40 MG/VIAL IVP SCH (08:11)
[2018-05-20 11:17] VITALS: BP 115/67
[2018-05-20 11:19] LABS: AMPHET/METH SCREEN,URINE NEGATIVE (NEGATIVE); BARBITURATE SCREEN, URINE NEGATIVE (NEGATIVE); BENZODIAZEPINES SCREEN,URINE NEGATIVE (NEGATIVE); CANNABINOID SCREEN,URINE NEGATIVE (NEGATIVE); COCAINE SCREEN,URINE NEGATIVE (NEGATIVE); METHADONE SCREEN, URINE NEGATIVE (NEGATIVE); OPIATE SCREEN,URINE NEGATIVE (NEGATIVE)
[2018-05-20 11:20] LABS: PHENCYCLIDINE SCREEN,URINE NEGATIVE (NEGATIVE)
[2018-05-20] MEDS ORDERED: LORazepam 2 MG/ML VIAL IM ONE (13:15)
[2018-05-20] MEDS ORDERED: DiphenhydrAMINE HCL 50 MG/ML VIAL IM ONE (13:15)
[2018-05-20] MEDS ORDERED: HALOPERIDOL LACTATE 5 MG/ML VIAL IM ONE (13:15)
[2018-05-20 15:30] VITALS: BP 118/71
[2018-05-20 20:30] VITALS: BP 115/73
[2018-05-20] MEDS: QUEtiapine FUMARATE 200 MG TABLET PO SCH (20:34)
[2018-05-20] MEDS: DIVALPROEX SODIUM 500 MG ER TABLET PO SCH (20:34)
[2018-05-21] VITALS (7 sets, daily range): BP systolic 109–144; BP diastolic 65–79
[2018-05-21] MEDS: SODIUM CHLORIDE 0.9% 1,000 ML IV SCH ×2 (06:02→23:27)
[2018-05-21] MEDS: PANTOPRAZOLE SODIUM 40 MG/VIAL IVP SCH (09:00)
[2018-05-21] MEDS ORDERED: LORazepam 2 MG/ML VIAL IM PRN (18:30)
[2018-05-21] MEDS: NICOTINE 21 MG/24 HOUR PATCH TD SCH (20:02)
[2018-05-21] MEDS: DIVALPROEX SODIUM 500 MG ER TABLET PO SCH (21:00)
[2018-05-21] MEDS: QUEtiapine FUMARATE 200 MG TABLET PO SCH (22:49)
[2018-05-22 04:15] VITALS: BP 107/65
[2018-05-22] MEDS ORDERED: -PHARMACY VACCINE NOTE- MISC ONE (05:45)
[2018-05-22 07:40] VITALS: BP 105/71
[2018-05-22 08:10] LABS: BASOPHILS % (AUTO) 0.5 % (0.0-2.0); EOSINOPHILS % (AUTO) 1.4 % (1.0-6.0); HEMATOCRIT 36.6 % (41-53); HEMOGLOBIN 11.6 g/dL (13.5-17.5); LYMPHOCYTES % (AUTO) 26.2 % (22.0-44.0); MEAN CORPUSCULAR HEMOGLOBIN 19.9 pg (26.0-34.0); MEAN CORPUSCULAR HGB CONC 31.8 G/dL (31.0-37.0); MEAN CORPUSCULAR VOLUME 63 fL (80-100); MONOCYTES # (AUTO) 0.5 K/uL (0.1-1.0); MONOCYTES % (AUTO) 6.8 % (2.0-9.0); NEUTROPHILS # (AUTO) 4.9 K/uL (1.8-7.7); NEUTROPHILS % (AUTO) 65.1 % (40.0-70.0); PLATELET COUNT (AUTO) 218 K/uL (150-450); RED BLOOD CELL COUNT(AUTO) 5.85 MIL/uL (4.50-5.90)
[2018-05-22] MEDS ORDERED: HEPATITIS A VACCINE, INACTI [ADULT] 1,440 UNITS/ML VIAL IM ONE (08:45)
[2018-05-22 09:15] LABS: ANION GAP 4 mmol/L (8-16); CALCIUM, TOTAL 8.6 mg/dL (8.8-10.5); CARBON DIOXIDE 33 mmol/L (22-29); CHLORIDE 103 mmol/L (98-107); CREATINE KINASE, TOTAL ONLY 818 U/L (39-308); CREATININE 0.68 mg/dL (0.60-1.30); GLOMERULAR FILTR. RATE CALC > 60 mL/min (>60); GLUCOSE,RANDOM 84 mg/dL (70-110); PHOSPHORUS 3.7 mg/dL (2.5-4.9); POTASSIUM 3.4 mmol/L (3.5-5.1); SODIUM SERUM 140 mmol/L (136-145); UREA NITROGEN, BLOOD 10 mg/dL (7-18)
[2018-05-22] MEDS: NICOTINE 21 MG/24 HOUR PATCH TD SCH (10:56)
[2018-05-22] MEDS ORDERED: PNEUMOCOCCAL VACCINE POLYVALENT 0.5 ML VIAL [PPSV23] IM ONE (11:00)
[2018-05-22] MEDS: PANTOPRAZOLE SODIUM 40 MG/VIAL IVP SCH (11:04)
[2018-05-22] MEDS ORDERED: DIVA500T52 PO (11:11)
[2018-05-22] MEDS ORDERED: QUET200T PO (11:11)
== END 2018-05-22 11:17 | disposition home or self-care (01) | DRG 469 ==
LOC: 6N 20:10
PROVIDERS: ADMIT Internal Medicine Geriatric Medicine; ATTEND Internal Medicine Geriatric Medicine
DX: N17.9 Acute kidney failure, unspecified (principal); G21.0 Malignant neuroleptic syndrome; M62.82 Rhabdomyolysis; R45.851 Suicidal ideations; E87.1 Hypo-osmolality and hyponatremia; F25.9 Schizoaffective disorder, unspecified; D64.9 Anemia, unspecified; F31.9 Bipolar disorder, unspecified; D72.829 Elevated white blood cell count, unspecified; F15.10 Other stimulant abuse, uncomplicated; F64.9 Gender identity disorder, unspecified; Z23 Encounter for immunization; Z59.0 Homelessness; Z91.19 Patient's noncompliance with other medical treatment and regimen
CPT/HCPCS: 76770; 80307; 82728; 83036; 83540; 83550; 83735; 84100; 84439; 84443; 86592; 90632; 90686; C9113; G0378; J1200; J1630; J2060; J7030

== ENCOUNTER 2018-05-24 19:59 | Emergency (ER) | payer OTHER ==
[~2018-05-24] VITALS: Ht 177.8 cm; Wt 61.4 kg
[~2018-05-24 19:59] MED LIST changes: -ARIP10TA8 PO; -CITA-106 PO; +DIVA500T52 PO; -MIRT15 PO; -PRED5 PO; +QUET200T PO
[2018-05-24 20:40] LABS: ANION GAP 6 mmol/L (8-16); CALCIUM, TOTAL 8.9 mg/dL (8.8-10.5); CARBON DIOXIDE 31 mmol/L (22-29); CHLORIDE 100 mmol/L (98-107); CREATININE 1.09 mg/dL (0.60-1.30); GLOMERULAR FILTR. RATE CALC > 60 mL/min (>60); GLUCOSE,RANDOM 101 mg/dL (70-110); POTASSIUM 4.3 mmol/L (3.5-5.1); SODIUM SERUM 137 mmol/L (136-145); UREA NITROGEN, BLOOD 22 mg/dL (7-18)
[2018-05-24 20:46] LABS: ALANINE AMINOTRANSFERASE 45 U/L (12-78); ALKALINE PHOSPHATASE 72 U/L (46-116); ASPARTATE AMINOTRANSFERASE 34 U/L (15-37); BILIRUBIN,TOTAL 0.7 mg/dL (0.1-1.0); TOTAL PROTEIN, SERUM 7.7 g/dL (6.4-8.2)
[2018-05-24 20:47] LABS: BASOPHILS % (AUTO) 0.4 % (0.0-2.0); EOSINOPHILS % (AUTO) 0.3 % (1.0-6.0); HEMOGLOBIN 11.5 g/dL (13.5-17.5); LYMPHOCYTES # (AUTO) 0.9 K/uL (1.0-4.8); LYMPHOCYTES % (AUTO) 8.7 % (22.0-44.0); MEAN CORPUSCULAR HEMOGLOBIN 19.9 pg (26.0-34.0); MEAN CORPUSCULAR HGB CONC 31.9 G/dL (31.0-37.0); MEAN CORPUSCULAR VOLUME 63 fL (80-100); MONOCYTES # (AUTO) 1.3 K/uL (0.1-1.0); NEUTROPHILS # (AUTO) 8.2 K/uL (1.8-7.7); NEUTROPHILS % (AUTO) 78.6 % (40.0-70.0); PLATELET COUNT (AUTO) 204 K/uL (150-450); RED BLOOD CELL COUNT(AUTO) 5.75 MIL/uL (4.50-5.90); RED CELL DISTRIBUTION WIDTH 15.6 % (11.5-14.5)
[2018-05-24 22:26] VITALS: BP 115/69
== END 2018-05-24 22:31 | disposition home or self-care (01) ==
LOC: EMS 20:00
DX: S30.860A Insect bite (nonvenomous) of lower back and pelvis, initial encounter (principal); F31.9 Bipolar disorder, unspecified; G47.00 Insomnia, unspecified; F17.210 Nicotine dependence, cigarettes, uncomplicated; W57.XXXA Bitten or stung by nonvenomous insect and other nonvenomous arthropods, initial encounter; Y93.89 Activity, other specified; Y92.89 Other specified places as the place of occurrence of the external cause; Y99.8 Other external cause status
CPT/HCPCS: 36415; 80053; 85025; 99284; G0480

== ENCOUNTER 2018-08-17 19:08 | Inpatient (IN) | payer MEDICAID ==
[~2018-08-17] VITALS: Ht 177.8 cm; Wt 63.0 kg
[2018-08-17] MEDS ORDERED: LORazepam 2 MG TABLET PO PRN (22:30)
[2018-08-17] MEDS ORDERED: HALOPERIDOL 5 MG TABLET PO PRN (22:30)
[2018-08-17] MEDS ORDERED: ZOLPIDEM TARTRATE 10 MG TABLET PO PRN (22:30)
[2018-08-17 22:39] VITALS: BP 111/73
[2018-08-17] MEDS ORDERED: IBUPROFEN 400 MG TABLET PO PRN (23:00)
[2018-08-17] MEDS ORDERED: PETROLATUM,WHITE 71 GM JELLY TP PRN (23:00)
[2018-08-17] MEDS ORDERED: CloNIDine HCL 0.1 MG TABLET PO PRN (23:00)
[2018-08-17] MEDS ORDERED: LOPERAMIDE HCL 2 MG CAPSULE PO PRN (23:00)
[2018-08-17] MEDS ORDERED: NICOTINE 14 MG/24 HOUR PATCH TD PRN (23:00)
[2018-08-17] MEDS ORDERED: ACETAMINOPHEN 325 MG TABLET PO PRN (23:00)
[2018-08-17] MEDS ORDERED: GuaiFENesin/D-METHORPHAN [SUGAR-FREE] 200-20MG/10 ML SYRUP UDCUP PO PRN (23:00)
[2018-08-17] MEDS ORDERED: MAGNESIUM HYDROXIDE SUSPENSION 30 ML UDCUP PO PRN (23:00)
[2018-08-17] MEDS ORDERED: ALBUTEROL SULFATE HFA 90 MCG/PUFF 8 GM INHALER IH PRN (23:00)
[2018-08-17] MEDS ORDERED: MAG HYDROX/AL HYDROX/SIMETH ES 30 ML SUSPENSION UDCUP PO PRN (23:00)
[2018-08-17] MEDS ORDERED: ONDANSETRON HCL 4 MG TABLET PO PRN (23:00)
[2018-08-17] MEDS ORDERED: DOCUSATE SODIUM 100 MG CAPSULE PO PRN (23:00)
[2018-08-18 08:22] VITALS: BP 118/70
[2018-08-18] MEDS: CEPHALEXIN MONOHYDRATE 500 MG CAPSULE PO SCH ×2 (14:47→17:58)
[2018-08-18 16:47] VITALS: BP 119/85
[2018-08-18] MEDS: QUEtiapine FUMARATE 200 MG TABLET PO SCH (20:36)
[2018-08-19 07:15] LABS: BASOPHILS % (AUTO) 0.4 % (0.0-2.0); EOSINOPHILS % (AUTO) 4.3 % (1.0-6.0); HEMATOCRIT 36.7 % (41-53); HEMOGLOBIN 11.6 g/dL (13.5-17.5); LYMPHOCYTES # (AUTO) 1.7 K/uL (1.0-4.8); MEAN CORPUSCULAR HEMOGLOBIN 19.3 pg (26.0-34.0); MEAN CORPUSCULAR HGB CONC 31.5 G/dL (31.0-37.0); MEAN CORPUSCULAR VOLUME 61 fL (80-100); MONOCYTES # (AUTO) 0.5 K/uL (0.1-1.0); MONOCYTES % (AUTO) 12.1 % (2.0-9.0); NEUTROPHILS % (AUTO) 45.2 % (40.0-70.0); PLATELET COUNT (AUTO) 160 K/uL (150-450); RED BLOOD CELL COUNT(AUTO) 5.97 MIL/uL (4.50-5.90); RED CELL DISTRIBUTION WIDTH 15.8 % (11.5-14.5)
[2018-08-19 07:32] LABS: ALANINE AMINOTRANSFERASE 30 U/L (12-78); ALBUMIN 3.2 g/dL (3.4-5.0); ALKALINE PHOSPHATASE 74 U/L (46-116); ANION GAP 2 mmol/L (8-16); ASPARTATE AMINOTRANSFERASE 17 U/L (15-37); BILIRUBIN,TOTAL 0.4 mg/dL (0.1-1.0); CALCIUM, TOTAL 8.4 mg/dL (8.8-10.5); CARBON DIOXIDE 33 mmol/L (22-29); CHLORIDE 105 mmol/L (98-107); CHOL/HDL RATIO 3.2 (4.2-7.3); CHOLESTEROL 142 mg/dL (131-200); CREATININE 0.81 mg/dL (0.60-1.30); GLOMERULAR FILTR. RATE CALC > 60 mL/min (>60); GLUCOSE,RANDOM 89 mg/dL (70-110); HDL CHOLESTEROL 45 mg/dL (40-60); LDL CHOL (CALC.) 86 mg/dL (0-130); POTASSIUM 4.2 mmol/L (3.5-5.1); SODIUM SERUM 140 mmol/L (136-145); THYROID STIMULATING HORMONE 0.39 uIU/mL (0.36-3.74); TOTAL PROTEIN, SERUM 6.5 g/dL (6.4-8.2); TRIGLYCERIDES 54 mg/dL (15-150); UREA NITROGEN, BLOOD 13 mg/dL (7-18)
[2018-08-19 07:33] LABS: HEMOGLOBIN A1C 5.6 % (4.5-6.2)
[2018-08-19] MEDS: FLUoxetine HCL 20 MG CAPSULE PO SCH (09:00)
[2018-08-19] MEDS: CEPHALEXIN MONOHYDRATE 500 MG CAPSULE PO SCH ×3 (11:42→16:46)
[2018-08-19 16:00] VITALS: BP 97/49
[2018-08-19] MEDS: QUEtiapine FUMARATE 200 MG TABLET PO SCH (21:00)
[2018-08-20] MEDS: MULTIVITAMINS WITH MINERALS, THERAPEUTIC TABLET PO SCH (09:00)
[2018-08-20] MEDS: CEPHALEXIN MONOHYDRATE 500 MG CAPSULE PO SCH ×3 (09:00→16:30)
[2018-08-20] MEDS: FLUoxetine HCL 20 MG CAPSULE PO SCH (09:00)
[2018-08-20 09:37] VITALS: BP 119/60
[2018-08-20 16:30] VITALS: BP 102/63
[2018-08-20] MEDS: QUEtiapine FUMARATE 200 MG TABLET PO SCH (20:47)
[2018-08-21 01:29] VITALS: BP 104/67
[2018-08-21] MEDS: FLUoxetine HCL 20 MG CAPSULE PO SCH (09:00)
[2018-08-21] MEDS: MULTIVITAMINS WITH MINERALS, THERAPEUTIC TABLET PO SCH (09:04)
[2018-08-21] MEDS: CEPHALEXIN MONOHYDRATE 500 MG CAPSULE PO SCH ×3 (09:04→16:15)
[2018-08-21 19:05] VITALS: BP 111/56
[2018-08-21] MEDS: QUEtiapine FUMARATE 200 MG TABLET PO SCH (20:31)
[2018-08-22 03:17] VITALS: BP 91/66
[2018-08-22] MEDS: MULTIVITAMINS WITH MINERALS, THERAPEUTIC TABLET PO SCH (09:00)
[2018-08-22] MEDS: FLUoxetine HCL 20 MG CAPSULE PO SCH (09:00)
[2018-08-22 09:51] VITALS: BP 101/56
[2018-08-22] MEDS: CEPHALEXIN MONOHYDRATE 500 MG CAPSULE PO SCH ×3 (09:58→16:26)
[2018-08-22 17:01] VITALS: BP 90/51
[2018-08-22] MEDS: QUEtiapine FUMARATE 200 MG TABLET PO SCH (21:13)
[2018-08-23 03:24] VITALS: BP 112/75
[2018-08-23 08:05] VITALS: BP 114/74
[2018-08-23] MEDS: CEPHALEXIN MONOHYDRATE 500 MG CAPSULE PO SCH ×3 (10:36→16:27)
[2018-08-23] MEDS: MULTIVITAMINS WITH MINERALS, THERAPEUTIC TABLET PO SCH (10:36)
[2018-08-23] MEDS: FLUoxetine HCL 20 MG CAPSULE PO SCH (10:36)
[2018-08-23 16:36] VITALS: BP 120/72
[2018-08-23] MEDS: FERROUS SULFATE 325 MG EC TABLET PO SCH (17:07)
[2018-08-23] MEDS: QUEtiapine FUMARATE 200 MG TABLET PO SCH (20:24)
[2018-08-24 02:20] VITALS: BP 130/71
[2018-08-24] MEDS: FERROUS SULFATE 325 MG EC TABLET PO SCH (06:55)
[2018-08-24] MEDS ORDERED: FLUO-191 PO (08:25)
[2018-08-24] MEDS ORDERED: QUET200T PO (08:25)
[2018-08-24] MEDS ORDERED: MULT-1239 PO (08:27)
[2018-08-24] MEDS ORDERED: FOLI1 PO (08:27)
[2018-08-24] MEDS ORDERED: FERR-89 PO (08:27)
[2018-08-24] MEDS ORDERED: CEPH500 PO (08:27)
[2018-08-24] MEDS ORDERED: FOLIC ACID 1 MG TABLET PO SCH (09:00)
[2018-08-24] MEDS: CEPHALEXIN MONOHYDRATE 500 MG CAPSULE PO SCH (09:09)
[2018-08-24] MEDS: MULTIVITAMINS WITH MINERALS, THERAPEUTIC TABLET PO SCH (09:10)
[2018-08-24] MEDS: FLUoxetine HCL 20 MG CAPSULE PO SCH (09:10)
[2018-08-24 09:11] VITALS: BP 114/67
== END 2018-08-24 09:50 | disposition home or self-care (01) | DRG 750 ==
LOC: 3EI 22:27
PROVIDERS: ADMIT Psychiatry & Neurology Psychiatry; ATTEND Psychiatry & Neurology Psychiatry
DX: F25.1 Schizoaffective disorder, depressive type (principal); R45.851 Suicidal ideations; F15.20 Other stimulant dependence, uncomplicated; D64.9 Anemia, unspecified; D72.819 Decreased white blood cell count, unspecified; F41.9 Anxiety disorder, unspecified; L03.115 Cellulitis of right lower limb; Z91.5 Personal history of self-harm
CPT/HCPCS: 83036; 84443

== ENCOUNTER 2018-09-26 06:41 | Inpatient (IN) | payer MEDICAID, OTHER ==
[~2018-09-26] VITALS: Ht 177.8 cm; Wt 64.4 kg
[~2018-09-26 06:41] MED LIST changes: +CEPH500 PO; -DIVA500T52 PO; +FERR-89 PO; +FLUO-191 PO; +FOLI1 PO; +MULT-1239 PO
[2018-09-26] MEDS ORDERED: QUET100T PO (07:13)
[2018-09-26] MEDS ORDERED: BUPR100 PO (07:13)
[2018-09-26] MEDS ORDERED: LORazepam 2 MG TABLET PO PRN (09:15)
[2018-09-26] MEDS ORDERED: HALOPERIDOL 5 MG TABLET PO PRN (09:15)
[2018-09-26] MEDS ORDERED: ZOLPIDEM TARTRATE 10 MG TABLET PO PRN (09:15)
[2018-09-26 09:56] LABS: BASOPHILS % (AUTO) 0.9 % (0.0-2.0); HEMATOCRIT 37.9 % (41-53); HEMOGLOBIN 11.8 g/dL (13.5-17.5); LYMPHOCYTES # (AUTO) 1.8 K/uL (1.0-4.8); LYMPHOCYTES % (AUTO) 31.7 % (22.0-44.0); MEAN CORPUSCULAR HEMOGLOBIN 19.5 pg (26.0-34.0); MEAN CORPUSCULAR HGB CONC 31.1 G/dL (31.0-37.0); MEAN CORPUSCULAR VOLUME 63 fL (80-100); MONOCYTES # (AUTO) 0.5 K/uL (0.1-1.0); MONOCYTES % (AUTO) 8.2 % (2.0-9.0); NEUTROPHILS # (AUTO) 3.4 K/uL (1.8-7.7); NEUTROPHILS % (AUTO) 58.2 % (40.0-70.0); PLATELET COUNT (AUTO) 193 K/uL (150-450); RED BLOOD CELL COUNT(AUTO) 6.05 MIL/uL (4.50-5.90)
[2018-09-26 09:58] LABS: AMPHET/METH SCREEN,URINE POSITIVE (NEGATIVE); BARBITURATE SCREEN, URINE NEGATIVE (NEGATIVE); BENZODIAZEPINES SCREEN,URINE NEGATIVE (NEGATIVE); CANNABINOID SCREEN,URINE NEGATIVE (NEGATIVE); COCAINE SCREEN,URINE NEGATIVE (NEGATIVE); METHADONE SCREEN, URINE NEGATIVE (NEGATIVE); OPIATE SCREEN,URINE NEGATIVE (NEGATIVE)
[2018-09-26 10:01] LABS: PHENCYCLIDINE SCREEN,URINE NEGATIVE (NEGATIVE)
[2018-09-26 10:07] LABS: ANION GAP 3 mmol/L (8-16); CALCIUM, TOTAL 9.1 mg/dL (8.8-10.5); CARBON DIOXIDE 33 mmol/L (22-29); CHLORIDE 102 mmol/L (98-107); CREATININE 1.01 mg/dL (0.60-1.30); GLOMERULAR FILTR. RATE CALC > 60 mL/min (>60); GLUCOSE,RANDOM 95 mg/dL (70-110); POTASSIUM 3.7 mmol/L (3.5-5.1); SODIUM SERUM 138 mmol/L (136-145); UREA NITROGEN, BLOOD 18 mg/dL (7-18)
[2018-09-26 10:14] LABS: ALANINE AMINOTRANSFERASE 33 U/L (12-78); ALBUMIN 3.7 g/dL (3.4-5.0); ALKALINE PHOSPHATASE 60 U/L (46-116); ASPARTATE AMINOTRANSFERASE 36 U/L (15-37); BILIRUBIN,TOTAL 0.6 mg/dL (0.1-1.0); TOTAL PROTEIN, SERUM 7.5 g/dL (6.4-8.2)
[2018-09-26 11:35] VITALS: BP 107/72
[2018-09-26] MEDS ORDERED: PETROLATUM,WHITE 71 GM JELLY TP PRN (14:15)
[2018-09-26] MEDS ORDERED: MAGNESIUM HYDROXIDE SUSPENSION 30 ML UDCUP PO PRN (14:15)
[2018-09-26] MEDS ORDERED: GuaiFENesin/D-METHORPHAN [SUGAR-FREE] 200-20MG/10 ML SYRUP UDCUP PO PRN (14:15)
[2018-09-26] MEDS ORDERED: ALBUTEROL SULFATE HFA 90 MCG/PUFF 8 GM INHALER IH PRN (14:15)
[2018-09-26] MEDS ORDERED: CloNIDine HCL 0.1 MG TABLET PO PRN (14:15)
[2018-09-26] MEDS ORDERED: LOPERAMIDE HCL 2 MG CAPSULE PO PRN (14:15)
[2018-09-26] MEDS ORDERED: IBUPROFEN 400 MG TABLET PO PRN (14:15)
[2018-09-26] MEDS ORDERED: ONDANSETRON HCL 4 MG TABLET PO PRN (14:15)
[2018-09-26] MEDS ORDERED: ACETAMINOPHEN 325 MG TABLET PO PRN (14:15)
[2018-09-26] MEDS ORDERED: DOCUSATE SODIUM 100 MG CAPSULE PO PRN (14:15)
[2018-09-26] MEDS ORDERED: NICOTINE 14 MG/24 HOUR PATCH TD PRN (14:15)
[2018-09-26] MEDS ORDERED: MAG HYDROX/AL HYDROX/SIMETH ES 30 ML SUSPENSION UDCUP PO PRN (14:15)
[2018-09-26 20:06] VITALS: BP 102/64
[2018-09-26] MEDS ORDERED: PNEUMOCOCCAL VACCINE POLYVALENT 0.5 ML VIAL [PPSV23] IM ONE (20:30)
[2018-09-26] MEDS ORDERED: -PHARMACY VACCINE NOTE- MISC ONE (20:30)
[2018-09-26] MEDS ORDERED: QUEtiapine FUMARATE 200 MG TABLET PO SCH (21:00)
[2018-09-26] MEDS: QUEtiapine FUMARATE 200 MG TABLET PO SCH (21:08)
[2018-09-27] MEDS ORDERED: FLUoxetine HCL 20 MG CAPSULE PO SCH ×2 (09:00)
[2018-09-27 12:49] VITALS: BP 101/63
[2018-09-27 20:07] VITALS: BP 106/70
[2018-09-27] MEDS: QUEtiapine FUMARATE 200 MG TABLET PO SCH (20:17)
[2018-09-28] MEDS ORDERED: -PHARMACY VACCINE NOTE- MISC ONE (02:30)
[2018-09-28 08:00] VITALS: BP 122/72
[2018-09-28] MEDS: BuPROPion HCL XL 150 MG ER TABLET PO SCH (08:18)
[2018-09-28 17:11] VITALS: BP 110/62
[2018-09-28] MEDS: QUEtiapine FUMARATE 200 MG TABLET PO SCH (20:26)
[2018-09-29 08:00] VITALS: BP 97/66
[2018-09-29] MEDS: BuPROPion HCL XL 150 MG ER TABLET PO SCH (09:59)
[2018-09-29 18:30] VITALS: BP 115/78
[2018-09-29] MEDS: QUEtiapine FUMARATE 200 MG TABLET PO SCH (20:38)
[2018-09-30 08:00] VITALS: BP 95/60
[2018-09-30] MEDS: BuPROPion HCL XL 150 MG ER TABLET PO SCH (09:37)
[2018-09-30 19:29] VITALS: BP 108/63
[2018-09-30] MEDS: QUEtiapine FUMARATE 200 MG TABLET PO SCH (20:58)
[2018-10-01 02:45] VITALS: BP 106/69
[2018-10-01 08:00] VITALS: BP 101/69
[2018-10-01] MEDS: BuPROPion HCL XL 150 MG ER TABLET PO SCH (09:50)
[2018-10-01 18:04] VITALS: BP 110/62
[2018-10-01] MEDS: QUEtiapine FUMARATE 200 MG TABLET PO SCH (20:25)
[2018-10-02] MEDS: BuPROPion HCL XL 150 MG ER TABLET PO SCH (09:31)
[2018-10-02] MEDS ORDERED: BUPR-93 PO (10:18)
[2018-10-02] MEDS ORDERED: QUET200T PO (10:19)
[2018-10-02 10:27] VITALS: BP 115/70
== END 2018-10-02 12:45 | disposition home or self-care (01) | DRG 750 ==
LOC: EMS 06:42 → 3EI 10:17
PROVIDERS: ADMIT Psychiatry & Neurology Psychiatry; ATTEND Psychiatry & Neurology Psychiatry
DX: F25.0 Schizoaffective disorder, bipolar type (principal); R45.851 Suicidal ideations; D64.9 Anemia, unspecified; F41.9 Anxiety disorder, unspecified; F64.9 Gender identity disorder, unspecified; G47.00 Insomnia, unspecified; K59.00 Constipation, unspecified; F60.3 Borderline personality disorder; F19.20 Other psychoactive substance dependence, uncomplicated; F32.9 Major depressive disorder, single episode, unspecified; R62.7 Adult failure to thrive; F17.210 Nicotine dependence, cigarettes, uncomplicated; Z91.5 Personal history of self-harm; Z79.899 Other long term (current) drug therapy; Z71.51 Drug abuse counseling and surveillance of drug abuser
CPT/HCPCS: 87081; 90732; G0480

== ENCOUNTER 2018-10-10 11:46 | Inpatient (IN) | payer MEDICAID, OTHER ==
[~2018-10-10] VITALS: Ht 177.8 cm; Wt 64.7 kg
[~2018-10-10 11:46] MED LIST changes: +BUPR-93 PO; -CEPH500 PO; -FERR-89 PO; -FLUO-191 PO; -FOLI1 PO; -MULT-1239 PO
[2018-10-10] MEDS ORDERED: SERT50TA12 PO (14:36)
[2018-10-10] MEDS ORDERED: TRAM50TA4 PO (14:36)
[2018-10-10] MEDS ORDERED: HALOPERIDOL 5 MG TABLET PO PRN (15:45)
[2018-10-10] MEDS ORDERED: LORazepam 2 MG TABLET PO PRN (15:45)
[2018-10-10] MEDS ORDERED: ZOLPIDEM TARTRATE 10 MG TABLET PO PRN (15:45)
[2018-10-10] MEDS ORDERED: IBUPROFEN 400 MG TABLET PO PRN ×2 (15:45→19:00)
[2018-10-10] MEDS ORDERED: ACETAMINOPHEN 325 MG TABLET PO PRN ×2 (15:45→19:00)
[2018-10-10 18:35] VITALS: BP 99/65
[2018-10-10] MEDS ORDERED: GuaiFENesin/D-METHORPHAN [SUGAR-FREE] 200-20MG/10 ML SYRUP UDCUP PO PRN (19:00)
[2018-10-10] MEDS ORDERED: ONDANSETRON HCL 4 MG TABLET PO PRN (19:00)
[2018-10-10] MEDS ORDERED: NICOTINE 14 MG/24 HOUR PATCH TD PRN (19:00)
[2018-10-10] MEDS ORDERED: ALBUTEROL SULFATE HFA 90 MCG/PUFF 8 GM INHALER IH PRN (19:00)
[2018-10-10] MEDS ORDERED: MAG HYDROX/AL HYDROX/SIMETH ES 30 ML SUSPENSION UDCUP PO PRN (19:00)
[2018-10-10] MEDS ORDERED: DOCUSATE SODIUM 100 MG CAPSULE PO PRN (19:00)
[2018-10-10] MEDS ORDERED: PETROLATUM,WHITE 71 GM JELLY TP PRN (19:00)
[2018-10-10] MEDS ORDERED: MAGNESIUM HYDROXIDE SUSPENSION 30 ML UDCUP PO PRN (19:00)
[2018-10-10] MEDS ORDERED: CloNIDine HCL 0.1 MG TABLET PO PRN (19:00)
[2018-10-10] MEDS ORDERED: LOPERAMIDE HCL 2 MG CAPSULE PO PRN (19:00)
[2018-10-11 06:27] LABS: BASOPHILS % (AUTO) 0.7 % (0.0-2.0); EOSINOPHILS % (AUTO) 2.8 % (1.0-6.0); HEMATOCRIT 35.7 % (41-53); HEMOGLOBIN 10.9 g/dL (13.5-17.5); LYMPHOCYTES # (AUTO) 1.9 K/uL (1.0-4.8); LYMPHOCYTES % (AUTO) 49.8 % (22.0-44.0); MEAN CORPUSCULAR HEMOGLOBIN 19.4 pg (26.0-34.0); MEAN CORPUSCULAR HGB CONC 30.7 G/dL (31.0-37.0); MEAN CORPUSCULAR VOLUME 63 fL (80-100); MONOCYTES # (AUTO) 0.4 K/uL (0.1-1.0); MONOCYTES % (AUTO) 10.9 % (2.0-9.0); NEUTROPHILS # (AUTO) 1.3 K/uL (1.8-7.7); NEUTROPHILS % (AUTO) 35.8 % (40.0-70.0); PLATELET COUNT (AUTO) 197 K/uL (150-450); RED BLOOD CELL COUNT(AUTO) 5.64 MIL/uL (4.50-5.90); RED CELL DISTRIBUTION WIDTH 16.3 % (11.5-14.5)
[2018-10-11 07:01] LABS: ALANINE AMINOTRANSFERASE 21 U/L (12-78); ALBUMIN 3.1 g/dL (3.4-5.0); ALKALINE PHOSPHATASE 63 U/L (46-116); ANION GAP 5 mmol/L (8-16); ASPARTATE AMINOTRANSFERASE 17 U/L (15-37); BILIRUBIN,TOTAL 0.4 mg/dL (0.1-1.0); CALCIUM, TOTAL 8.5 mg/dL (8.8-10.5); CARBON DIOXIDE 31 mmol/L (22-29); CHLORIDE 108 mmol/L (98-107); CHOL/HDL RATIO 2.9 (4.2-7.3); CHOLESTEROL 108 mg/dL (131-200); CREATININE 0.88 mg/dL (0.60-1.30); GLOMERULAR FILTR. RATE CALC > 60 mL/min (>60); GLUCOSE,RANDOM 86 mg/dL (70-110); HDL CHOLESTEROL 37 mg/dL (40-60); LDL CHOL (CALC.) 61 mg/dL (0-130); POTASSIUM 4.1 mmol/L (3.5-5.1); SODIUM SERUM 144 mmol/L (136-145); THYROID STIMULATING HORMONE 0.68 uIU/mL (0.36-3.74); TOTAL PROTEIN, SERUM 6.5 g/dL (6.4-8.2); TRIGLYCERIDES 48 mg/dL (15-150); UREA NITROGEN, BLOOD 11 mg/dL (7-18)
[2018-10-11] MEDS: QUEtiapine FUMARATE 200 MG TABLET PO SCH (20:08)
[2018-10-12 04:39] VITALS: BP 103/63
[2018-10-12 08:20] VITALS: BP 90/60
[2018-10-12] MEDS: FOLIC ACID 1 MG TABLET PO SCH (10:24)
[2018-10-12] MEDS: BuPROPion HCL XL 150 MG ER TABLET PO SCH (10:24)
[2018-10-12] MEDS: QUEtiapine FUMARATE 200 MG TABLET PO SCH (20:55)
[2018-10-12 21:02] VITALS: BP 102/69
[2018-10-13 08:09] VITALS: BP 106/61
[2018-10-13] MEDS: FOLIC ACID 1 MG TABLET PO SCH (08:15)
[2018-10-13] MEDS: BuPROPion HCL XL 150 MG ER TABLET PO SCH (08:15)
[2018-10-13] MEDS ORDERED: TETANUS/DIPHTHERIA TOXOID [ADULT] 0.5 ML VIAL IM ONE (17:00)
[2018-10-13 18:16] VITALS: BP 119/70
[2018-10-13] MEDS: QUEtiapine FUMARATE 200 MG TABLET PO SCH (20:58)
[2018-10-14 08:05] VITALS: BP 131/76
[2018-10-14] MEDS: BuPROPion HCL XL 150 MG ER TABLET PO SCH (10:10)
[2018-10-14] MEDS: FOLIC ACID 1 MG TABLET PO SCH (10:10)
[2018-10-14 18:41] VITALS: BP 134/71
[2018-10-14] MEDS: QUEtiapine FUMARATE 200 MG TABLET PO SCH (22:04)
[2018-10-15 10:09] VITALS: BP 106/72
[2018-10-15] MEDS: FOLIC ACID 1 MG TABLET PO SCH (10:39)
[2018-10-15] MEDS: BuPROPion HCL XL 150 MG ER TABLET PO SCH (10:39)
[2018-10-15 17:00] VITALS: BP 110/67
[2018-10-15] MEDS: QUEtiapine FUMARATE 200 MG TABLET PO SCH (20:09)
[2018-10-16] MEDS ORDERED: FOLI1 PO (07:43)
[2018-10-16] MEDS: FOLIC ACID 1 MG TABLET PO SCH (08:05)
[2018-10-16] MEDS: BuPROPion HCL XL 150 MG ER TABLET PO SCH (08:06)
[2018-10-16 09:55] VITALS: BP 125/53
== END 2018-10-16 10:00 | disposition home or self-care (01) | DRG 750 ==
LOC: EMS 11:47 → 3EI 17:57
PROVIDERS: ADMIT Psychiatry & Neurology Psychiatry; ATTEND Psychiatry & Neurology Psychiatry
DX: F25.1 Schizoaffective disorder, depressive type (principal); R45.851 Suicidal ideations; D64.9 Anemia, unspecified; D72.819 Decreased white blood cell count, unspecified; F12.90 Cannabis use, unspecified, uncomplicated; F15.90 Other stimulant use, unspecified, uncomplicated; F32.9 Major depressive disorder, single episode, unspecified; F64.9 Gender identity disorder, unspecified; R10.9 Unspecified abdominal pain; K59.00 Constipation, unspecified; Z53.20 Procedure and treatment not carried out because of patient's decision for unspecified reasons; Z87.891 Personal history of nicotine dependence; Z91.5 Personal history of self-harm; Z79.899 Other long term (current) drug therapy
CPT/HCPCS: 83036; 84443; 87081; 90714

== ENCOUNTER 2018-10-31 21:50 | Emergency (ER) | payer MEDICAID, OTHER ==
[~2018-10-31] VITALS: Ht 177.8 cm; Wt 68.2 kg
[~2018-10-31 21:50] MED LIST changes: +FOLI1 PO
[2018-10-31 22:43] VITALS: BP 119/74
== END 2018-10-31 23:34 | disposition home or self-care (01) ==
LOC: EMS 21:51
DX: F31.9 Bipolar disorder, unspecified (principal); F20.9 Schizophrenia, unspecified; F17.210 Nicotine dependence, cigarettes, uncomplicated; F12.90 Cannabis use, unspecified, uncomplicated

== ENCOUNTER 2024-04-01 00:04 | Emergency (ER) | payer MEDICAID, OTHER ==
[~2024-04-01] VITALS: Ht 177.8 cm; Wt 68.0 kg
[~2024-04-01 00:04] MED LIST changes: +BUPR-514 PO; -BUPR-93 PO; -FOLI1 PO
[2024-04-01 00:07] VITALS: TEMP 98.5
[2024-04-01 02:00] VITALS: BP 134/69; PULSE 99; RESP 18; O2SAT 99
[2024-04-01] MEDS ORDERED: HYDR30CR3 TP (02:05)
[2024-04-01] MEDS ORDERED: MICO14CR5 TP (02:05)
[2024-04-01] MEDS ORDERED: PRED-554 PO (02:05)
[2024-04-01] MEDS ORDERED: PENI500T2 PO (02:05)
[2024-04-01] MEDS: PENICILLIN V POTASSIUM 500 MG TABLET PO ONE (02:34)
[2024-04-01] MEDS: HYDROCORTISONE 2.5% 30 GM CREAM TP ONE (02:34)
[2024-04-01] MEDS: PredniSONE 20 MG TABLET PO ONE (02:34)
== END 2024-04-01 03:01 | disposition home or self-care (01) ==
LOC: EMS 00:07
DX: L20.9 Atopic dermatitis, unspecified (principal); F31.9 Bipolar disorder, unspecified; F17.210 Nicotine dependence, cigarettes, uncomplicated; F12.90 Cannabis use, unspecified, uncomplicated; F64.0 Transsexualism; Z59.00 Homelessness unspecified
CPT/HCPCS: 99284; J7512

== ENCOUNTER 2024-05-21 04:28 | Emergency (ER) | payer MEDICAID ==
[~2024-05-21] VITALS: Ht 170.2 cm; Wt 75.0 kg
[~2024-05-21 04:28] MED LIST changes: +HYDR30CR3 TP; +MICO14CR5 TP; +PENI500T2 PO; +PRED-554 PO
[2024-05-21 04:40] VITALS: TEMP 98.5
[2024-05-21] MEDS ORDERED: BACI28.410 TP (07:59)
[2024-05-21] MEDS ORDERED: BUPR-514 PO (07:59)
[2024-05-21 08:25] VITALS: BP 116/71; PULSE 97; RESP 16; O2SAT 100
== END 2024-05-21 08:57 | disposition home or self-care (01) ==
LOC: EMS 04:29
DX: L20.9 Atopic dermatitis, unspecified (principal); F31.9 Bipolar disorder, unspecified; F12.90 Cannabis use, unspecified, uncomplicated; F17.210 Nicotine dependence, cigarettes, uncomplicated; Z59.00 Homelessness unspecified
CPT/HCPCS: 99283; Z7502

== ENCOUNTER 2024-05-22 15:49 | Emergency (ER) | payer MEDICAID ==
[~2024-05-22] VITALS: Ht 177.8 cm; Wt 63.6 kg
[~2024-05-22 15:49] MED LIST changes: +BACI28.410 TP
[2024-05-22 15:55] VITALS: BP 107/69; PULSE 100; RESP 18; TEMP 98.6; O2SAT 100
[2024-05-22] MEDS: BuPROPion HCL 100 MG TABLET PO ONE (16:44)
== END 2024-05-22 17:24 | disposition home or self-care (01) ==
LOC: EMS 15:49
DX: F31.9 Bipolar disorder, unspecified (principal); F17.210 Nicotine dependence, cigarettes, uncomplicated; F12.90 Cannabis use, unspecified, uncomplicated; Z88.6 Allergy status to analgesic agent
CPT/HCPCS: 99284; Z7502; Z7610

== ENCOUNTER 2024-05-24 22:09 | Emergency (ER) | payer MEDICAID ==
[~2024-05-24] VITALS: Ht 177.8 cm; Wt 63.6 kg
[~2024-05-24 22:09] MED LIST changes: -BACI28.410 TP; -HYDR30CR3 TP; -MICO14CR5 TP; -PENI500T2 PO; -PRED-554 PO; -QUET200T PO
[2024-05-24 22:20] VITALS: BP 104/62; PULSE 122; RESP 18; TEMP 99.4; O2SAT 99
[2024-05-25 01:04] LABS: COVID AG,FIA SOURCE NASAL SWAB
[2024-05-25 01:27] LABS: SARS-COV2 (COVID) ANTIGEN,FIA Negative (Negative)
== END 2024-05-25 08:38 | disposition home or self-care (01) ==
LOC: EMS 22:09
DX: R45.851 Suicidal ideations (principal); F31.9 Bipolar disorder, unspecified; F12.90 Cannabis use, unspecified, uncomplicated; F17.210 Nicotine dependence, cigarettes, uncomplicated; Z88.6 Allergy status to analgesic agent; Z79.899 Other long term (current) drug therapy; Z20.822 Contact with and (suspected) exposure to COVID-19
CPT/HCPCS: 99285; Z7502

== ENCOUNTER 2024-07-15 05:49 | Emergency (ER) | payer MEDICAID ==
[~2024-07-15] VITALS: Ht 177.8 cm; Wt 63.6 kg
[2024-07-15 05:54] VITALS: BP 117/71; PULSE 122; RESP 16; TEMP 98.2; O2SAT 100
[2024-07-15] MEDS: ACETAMINOPHEN 325 MG TABLET PO ONE (06:44)
[2024-07-15] MEDS ORDERED: ACET-2247 PO (12:39)
== END 2024-07-15 13:56 | disposition home or self-care (01) ==
LOC: EMS 05:49
DX: M79.675 Pain in left toe(s) (principal); F12.90 Cannabis use, unspecified, uncomplicated; F31.9 Bipolar disorder, unspecified; Z88.6 Allergy status to analgesic agent; Z79.899 Other long term (current) drug therapy
CPT/HCPCS: 99283

== ENCOUNTER 2024-10-04 04:12 | Emergency (ER) | payer MEDICAID ==
[~2024-10-04] VITALS: Ht 177.8 cm; Wt 75.0 kg
[~2024-10-04 04:12] MED LIST changes: +ACET-2247 PO; -BUPR-514 PO; +BUPR-559 PO
[2024-10-04 04:23] VITALS: BP 120/75; PULSE 70; RESP 18; TEMP 97.9; O2SAT 100
== END 2024-10-04 05:30 | disposition left against medical advice (07) ==
LOC: EMS 04:13
DX: R44.3 Hallucinations, unspecified (principal); Z53.21 Procedure and treatment not carried out due to patient leaving prior to being seen by health care provider

== ENCOUNTER 2024-10-04 09:34 | Emergency (ER) | payer MEDICAID ==
[~2024-10-04] VITALS: Ht 177.8 cm; Wt 72.0 kg
[2024-10-04 09:39] VITALS: TEMP 97.9
[2024-10-04] MEDS: PERMETHRIN 5% 60 GM CREAM TP ONE (10:44)
[2024-10-04 11:13] VITALS: BP 124/71; PULSE 75; RESP 18; O2SAT 100
== END 2024-10-04 12:06 | disposition home or self-care (01) ==
LOC: EMS 09:41
DX: B86 Scabies (principal); F17.210 Nicotine dependence, cigarettes, uncomplicated; Z88.6 Allergy status to analgesic agent; Z79.899 Other long term (current) drug therapy; Z91.199 Patient's noncompliance with other medical treatment and regimen due to unspecified reason
CPT/HCPCS: 99282; Z7502; Z7610